=== PATIENT | female | born 1995 | race Caucasian/White ===

== ENCOUNTER 2018-05-25 22:39 | Emergency (ER) | payer SELFPAY ==
[~2018-05-25] VITALS: Ht 165.1 cm; Wt 79.0 kg
[2018-05-26] MEDS ORDERED: KETOROLAC 15MG/ML VIAL IM ONE (01:30)
[2018-05-26 03:35] VITALS: BP 106/65
== END 2018-05-26 03:37 | disposition home or self-care (01) ==
LOC: ER 22:39
DX: M25.511 Pain in right shoulder (principal); W20.8XXA Other cause of strike by thrown, projected or falling object, initial encounter; Y93.89 Activity, other specified; Y92.69 Other specified industrial and construction area as the place of occurrence of the external cause; Y99.0 Civilian activity done for income or pay
CPT/HCPCS: 73030; 81025; 96372; 99283; J1885; A4565